=== PATIENT | male | born 1950 ===

== ENCOUNTER → 2018-07-10 21:10 | Outpatient (REF) | payer MEDICARE, OTHER, SELFPAY ==
[2018-07-10 21:13] LABS: Bacteria Urine None Seen; RBC Urine None Seen (0-5/HPF); WBC Urine None Seen (0-5/HPF)
[2018-07-10 21:35] LABS: Appearance Urine UA CLEAR; Bilirubin Urine UA NEGATIVE (NEGATIVE); Color Urine UA YELLOW; Glucose Urine UA NEGATIVE (Negative); Ketones Urine UA TRACE (NEGATIVE); Leukocyte Esterase Urine UA NEGATIVE (NEGATIVE); Nitrite Urine UA NEGATIVE (Negative); Occult Blood Urine UA NEGATIVE (Negative); Protein Urine UA TRACE (Negative); Urobilinogen Urine UA 0.2 E.U./dL (0.2)
[2018-07-10 21:47] LABS: Add Manual Diff / Slide Review NO; Basophils Absolute Auto 0 /uL (0-100); Basophils Percent Auto 1.1 % (0-2); Eosinophils Absolute Auto 0 /uL (0-450); Hematocrit 53.3 % (41-53); Hemoglobin 17.6 g/dL (13.5-17.5); Lymphocytes Absolute Auto 1700 /uL (1100-4500); Lymphocytes Percent Auto 38.1 % (25-40); Mean Corpuscular HGB Conc 33.1 % (30-36); Mean Corpuscular Hemoglobin 31.9 PG (26-34); Mean Corpuscular Volume 96.5 fL (80-100); Monocytes Absolute Auto 500 /uL (0-900); Monocytes Percent Auto 10.8 % (3-14); Neutrophils Absolute Auto 2200 /uL (1500-7000); Platelet Count 305 X10^3/uL (150-400); Red Blood Cell Count 5.52 X10^6/uL (4.5-5.9); Red Cell Distribution Width 13.5 % (11.6-14.8); White Blood Cell Count 4.5 X10^3/uL (4.5-11.0)
[2018-07-10 21:48] LABS: Culture Indicated Urine Cult Not Indicated; Mucus Urine 3+ (Negative); Sperm Urine PRESENT
[2018-07-10 21:49] LABS: Alanine Aminotransferase 40 IU/L (21-72); Albumin 4.7 g/dL (3.5-5.0); Albumin Globulin Ratio 1.6 (1.0-2.8); Alkaline Phosphatase 68 U/L (38-126); Aspartate Aminotransferase 37 IU/L (17-59); BUN Creatinine Ratio 17.5 (6-22); Bilirubin Total 0.6 mg/dL (0.2-1.3); Blood Urea Nitrogen 14 mg/dL (9-20); Calcium 9.7 mg/dL (8.4-10.2); Carbon Dioxide 29 mmol/L (22-32); Chloride 100 mmol/L (98-107); Cholesterol 151 mg/dL (140-199); Estimated Glomerular Filt Rate > 60.0 mL/min (>60); Globulin 2.9 g/dL (1.7-4.1); Glucose 90 mg/dL (80-110); HDL Cholesterol 48 mg/dL (40-60); HEMOLYSIS 18 (0-50); LDL Cholesterol Calculated 83 mg/dL (<100); Sodium 140 mmol/L (137-145); Total Protein 7.6 g/dL (6.3-8.2); Triglycerides 100 mg/dL (35-150)
[2018-07-10 22:06] LABS: Free T3, Triiodothyronine Free 3.47 pg/mL (2.77-5.27)
[2018-07-10 22:19] LABS: Thyroid Stimulating Hormone 2.47 uIU/mL (0.47-4.68)
== END ==
LOC: LAB 21:10
PROVIDERS: Visit Provider Naturopath
DX: Z00.00 Encounter for general adult medical examination without abnormal findings (principal); R39.12 Poor urinary stream; E03.9 Hypothyroidism, unspecified; R53.83 Other fatigue
CPT/HCPCS: 36415; 80053; 80061; 81001; 84153; 84443; 84481; 85025